=== PATIENT | female | born 1985 | race African-American/Black ===

== ENCOUNTER 2017-01-02 11:14 | Emergency (ER) | payer OTHER ==
[2017-01-02 12:04] VITALS: BP 118/81
--- NOTE | 2017-01-02 12:54 | UC ---
Eye Complaint HPI - HPI Summary HPI Summary: ONE WEEK OF CONGESTION COLD SYMPTOMS, LAST TWO DAYS HAS HAD LEFT EYE IRRITATION , BURNING AND DRAINAGE AND DISCHARGE. - History of Current Complaint Chief Complaint: UCEye Stated Complaint: EYE INFECTION Time Seen by Provider: 01/02/17 11:56 Hx Obtained From: Patient Hx Last Menstrual Period: depo shots - last period in february Onset/Duration: Gradual Onset, Lasting Weeks, Worse Since - LAST TWO DAYS Timing: Weeks Severity Initially: Mild Severity Currently: Moderate Location of Injury: Conjunctiva Character: Dull Aggravating Factor(s): Nothing Alleviating Factor(s): Nothing Associated Signs And Symptoms: Positive: Drainage (Clear), Drainage (Purulent). Negative: Photophobia, Vision Impairment Bilateral, Vision Impairment Right, Vision Impairment Left, Fever, Swelling - Risk Factors Globe Rupture Risk Factors: Negative Acute Glaucoma Risk Factors: Negative Optic Artery Occlusion Risk Factors: Negative - Allergies/Home Medications Allergies/Adverse Reactions: Allergies Allergy/AdvReac Type Severity Reaction Status Date / Time Shrimp Flavor Allergy Anaphylatic Verified 03/22/16 07:50 Shock PMH/Surg Hx/FS Hx/Imm Hx Previously Healthy: Yes Endocrine History Of: Denies: Diabetes, Thyroid Disease Cardiovascular History Of: Denies: Cardiac Disorders, Hypertension Respiratory History Of: Denies: COPD, Asthma GI/ History Of: Denies: Ulcer - Surgical History Surgical History: Yes Surgery Procedure, Year, and Place: tubal ligation - Family History Known Family History: Negative: Respiratory Disease - Social History Occupation: Employed Full-time Alcohol Use: Rare Substance Use Type: None Smoking Status (MU): Light Every Day Tobacco Smoker Type: Cigarettes Amount Used/How Often: 1pk/week Cessation Counseling: Patient Advised to Stop Review of Systems Constitutional: Negative Skin: Negative Eyes: Drainage, Eye Redness ENT: Ear Ache, Nasal Discharge Respiratory: Cough Cardiovascular: Negative Gastrointestinal: Negative Genitourinary: Negative Motor: Negative Neurovascular: Negative Musculoskeletal: Negative Neurological: Negative Psychological: Negative All Other Systems Reviewed And Are Negative: Yes Physical Exam Triage Information Reviewed: Yes Appearance: Well-Appearing, No Pain Distress, Well-Nourished Vital Signs: Initial Vital Signs Temp 97.8 F 01/02/17 11:56 Pulse 87 01/02/17 11:56 Resp 18 01/02/17 11:56 BP 118/81 01/02/17 11:56 Pulse Ox 100 01/02/17 11:56 Vital Signs Reviewed: Yes Eyes: Positive: Conjunctiva Inflamed, Discharge ENT: Positive: Hearing grossly normal, Pharynx normal, TM bulging, TM dull, Other: - CERUMEN IMPACTION BILATERAL L>R Dental Exam: Normal Neck exam: Normal Neck: Positive: Supple, Nontender, No Lymphadenopathy Respiratory Exam: Normal Respiratory: Positive: Chest non-tender, Lungs clear, Normal breath sounds, No respiratory distress, No accessory muscle use Cardiovascular Exam: Normal Cardiovascular: Positive: RRR, No Murmur, Pulses Normal Abdominal Exam: Normal Abdomen Description: Positive: Nontender, No Organomegaly Musculoskeletal Exam: Normal Neurological Exam: Normal Psychological Exam: Normal Psychological: Positive: Normal Response To Family Skin Exam: Normal Eye Complaint Course/Dx - Differential Dx/Diagnosis Differential Diagnosis/HQI/PQRI: Conjunctivitis Provider Diagnoses: LEFT CONJUNCTIVITIS. SINUSITIS Discharge - Discharge Plan Condition: Stable Disposition: HOME Prescriptions: Amoxicillin/Clavulanate TAB* [Augmentin TAB 875*] 875 mg PO BID #20 tab Neomycin/Polymy/Dex OPTH.SUSP* [Maxitrol Opth Susp 0.1%*] 1 drop LEFT EYE TID # 1 bottle Patient Education Materials: Sinusitis (ED), Cerumen Impaction (ED), Conjunctivitis (ED) Referrals: Steven Garcia MD [Primary Care Provider] -
== END 2017-01-02 13:04 | disposition home or self-care (01) ==
LOC: UCEAST 11:14
DX: H10.32 Unspecified acute conjunctivitis, left eye (principal); J32.9 Chronic sinusitis, unspecified; F17.210 Nicotine dependence, cigarettes, uncomplicated
CPT/HCPCS: 99212; G0463

== ENCOUNTER 2017-07-17 12:53 | Emergency (ER) | payer SELFPAY ==
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
[2017-07-17] MEDS ORDERED: Ibuprofen TAB* 600 MG PO ONE (13:48)
--- NOTE | 2017-07-17 14:45 | RAD ---
Indication: RIGHT shoulder pain post fall. Comparison: No relevant prior exams available on the [facility] for comparison. Technique: Internal rotation AP, external rotation Grashey, scapular Y, axillary views RIGHT shoulder Report: Normal acromioclavicular and glenohumeral joint alignment. Transverse gap at the acromioclavicular joint is upper normal. Negative for fracture. No significant arthropathic change evident. Unremarkable soft tissue contours. IMPRESSION: Negative for fracture or dislocation.
[2017-07-17 14:54] VITALS: BP 119/73
== END 2017-07-17 14:55 | disposition home or self-care (01) ==
LOC: UCEAST 12:53
DX: S40.011A Contusion of right shoulder, initial encounter (principal); S40.211A Abrasion of right shoulder, initial encounter; S00.81XA Abrasion of other part of head, initial encounter; S20.319A Abrasion of unspecified front wall of thorax, initial encounter; S01.511A Laceration without foreign body of lip, initial encounter; Y04.8XXA Assault by other bodily force, initial encounter; Y93.9 Activity, unspecified; Y92.9 Unspecified place or not applicable; F17.210 Nicotine dependence, cigarettes, uncomplicated
CPT/HCPCS: 99213; A9270-GY; G0463

== ENCOUNTER 2017-10-08 15:04 | Emergency (ER) | payer SELFPAY ==
[2017-10-08 15:33] VITALS: BP 112/63
--- NOTE | 2017-10-08 15:44 | UC ---
Lower Extremity/Ankle HPI - HPI Summary HPI Summary: Pt presents with left foot pain. 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 At some point during this process, the patient moved and the wheelchair hit her left foot and pinched it. She was able to walk on it and carried on with the rest of her shift, but today had increased pain and swelling at the base of her 2nd and 3rd digits. Has been icing the foot. Nothing OTC for pain. Denies previous injury, numbness, or tingling. - History of Current Complaint Chief Complaint: UCLowerExtremity Stated Complaint: SWOLLEN TOE Time Seen by Provider: 10/08/17 15:35 Hx Obtained From: Patient Hx Last Menstrual Period: 09/09/17 ?: No Onset/Duration: Sudden Onset Severity Initially: Mild Severity Currently: Moderate Pain Intensity: 7 Pain Scale Used: 0-10 Numeric Aggravating Factor(s): Standing, Ambulation Alleviating Factor(s): Rest, Elevation Able to Bear Weight: Yes - Allergies/Home Medications Allergies/Adverse Reactions: Allergies Allergy/AdvReac Type Severity Reaction Status Date / Time Shrimp Flavor Allergy Anaphylatic Verified 10/08/17 15:33 Shock PMH/Surg Hx/FS Hx/Imm Hx Previously Healthy: Yes - Surgical History Surgical History: Yes Surgery Procedure, Year, and Place: tubal ligation - Family History Known Family History: Positive: None Negative: Respiratory Disease - Social History Occupation: Employed Full-time Lives: With Family Alcohol Use: Rare Substance Use Type: None Smoking Status (MU): Light Every Day Tobacco Smoker Type: Cigarettes Amount Used/How Often: 1pk/week Have You Smoked in the Last Year: Yes Household Exposure Type: Cigarettes Cessation Counseling: Counseled 3+Min - 10 Min Review of Systems Constitutional: Negative Skin: Negative Respiratory: Negative Cardiovascular: Negative Neurovascular: Negative Musculoskeletal: Other: - Pain left forefoot. Neurological: Negative Psychological: Negative All Other Systems Reviewed And Are Negative: Yes Physical Exam Triage Information Reviewed: Yes Appearance: Well-Appearing, Well-Nourished Vital Signs: Initial Vital Signs Temp 98 F 10/08/17 15:28 Pulse 91 10/08/17 15:28 Resp 17 10/08/17 15:28 BP 112/63 10/08/17 15:28 Pulse Ox 100 11/26/17 15:28 Vital Signs Reviewed: Yes Musculoskeletal: Positive: Strength Intact, ROM Intact, No Edema, Other: - Left foot: TTP at the base of the 2nd and 3rd digits. No obvious bony deformities. Mild pain with toe extension over the base of 2nd and 3rd. Neurological: Positive: Alert, Other: - Sensations intact b/l feet and all digits. Psychological: Positive: Age Appropriate Behavior Skin: Negative: rashes Lower Extremity Course/Dx - Course Course Of Treatment: Prior to imaging study, a test was offered and potential risks to a fetus were discussed - pt declined test. XR: IMPRESSION: NO EVIDENCE FOR FRACTURE. Crutches. WBOT. CORRINA wrap. Ibuprofen for pain. No work today. - Differential Dx/Diagnosis Differential Diagnosis/HQI/PQRI: Contusion, Dislocation, Fracture (Closed), Sprain, Strain Provider Diagnoses: Foot contusion Discharge - Discharge Plan Condition: Stable Disposition: HOME Patient Education Materials: Foot Contusion (ED) Referrals: Steven Garcia MD [Primary Care Provider] - Brett Tran MD [Medical Doctor] - If Needed Additional Instructions: 1) Rest, Elevate, Wrap, and Ice your foot. 2) No work for today. Weight bear and walk as tolerated. 3) Ibuprofen OTC for pain If you develop a fever, SOB, chest pain, new or worsening symptoms - please call your PCP or go to the ED.
--- NOTE | 2017-10-08 16:07 | RAD ---
INDICATION: Left foot injury. TECHNIQUE: 3 views of the left foot were obtained. FINDINGS: The bones are in normal alignment. No fracture is seen. Joint spaces appear maintained. IMPRESSION: NO EVIDENCE FOR FRACTURE, IF THE PATIENT'S SYMPTOMS PERSIST RECOMMEND FOLLOW-UP IMAGING.
== END 2017-10-08 16:36 | disposition home or self-care (01) ==
LOC: UCEAST 15:04
DX: Z72.0 Tobacco use (principal); S90.32XA Contusion of left foot, initial encounter; V00.818A Other accident with wheelchair (powered), initial encounter; Y93.89 Activity, other specified; Y92.9 Unspecified place or not applicable; Y99.0 Civilian activity done for income or pay
CPT/HCPCS: 99213; G0463

== ENCOUNTER 2020-02-27 07:05 | Day surgery (SDC) | payer OTHER ==
[~2020-02-27 07:05] MED LIST: Buffered Lidocaine 1% SYRIN* 1 ML/SYRINGE INTRADERM ONE; Lactated Ringers 1000 ML Bag* 1,000 ML IV SCH
[2020-02-27] MEDS ORDERED: ceFAZolin 1 GM ADVAN(*) 1 GM ADDV.VIAL IVPB ONE (07:30)
[2020-02-27] MEDS ORDERED: ceFAZolin 2 GM PREMIX in ORs 2 GM/50 ML BAG ONE (07:30)
[2020-02-27] MEDS ORDERED: Propofol* 10 MG/ML 20 ML BTL ONE (08:06)
[2020-02-27] MEDS ORDERED: Lidocaine 2% PF * 5 ML VIAL ONE (08:07)
[2020-02-27] MEDS ORDERED: Dexmedetomidine* 200 MCG/2 ML 2 ML VIAL ONE (08:07)
[2020-02-27] MEDS ORDERED: Bupivacaine 0.25% SDV PF* 10 ML VIAL INJ ONE (08:07)
[2020-02-27] MEDS ORDERED: Midazolam* 1 MG/ML 2 ML VIAL (2 MG) ONE (08:08)
[2020-02-27] MEDS ORDERED: Buffered Lidocaine 1% SYRIN* 1 ML/SYRINGE INTRADERM ONE (08:22)
[2020-02-27] MEDS ORDERED: Bupivacaine 0.5%* 50 ML MDV VIAL ONE (09:17)
[2020-02-27] MEDS ORDERED: Ketorolac INJ* 30 MG/ML 1 ML VIAL ONE (10:40)
[2020-02-27] MEDS ORDERED: Ondansetron INJ* 2 MG/ML VIAL ONE (10:40)
[2020-02-27] MEDS ORDERED: Acetaminophen IV 1GM/100ML * 100 ML ONE (10:40)
--- NOTE | 2020-02-27 11:56 | OP ---
Operative Report - Blank - Operative Report Date of Operation: 02/27/20 Note: PATIENT: Olga Trimble DATE OF : 1985 DATE OF SURGERY: 02/27/2020 SURGEON: Brett Tran MD MILLER KILN DRIED SALT: PANKAJ Bynum, whos assistance was necessary for positioning, retraction, help with instrumentation, and closure. ANESTHESIOLOGIST: Dr. Serra PREOPERATIVE DIAGNOSIS: Left displaced lateral talar dome osteochondral fracture and ankle sprain POSTOPERATIVE DIAGNOSIS: Left displaced lateral talar dome osteochondral fracture and ankle sprain OPERATION: 1. Left open reduction and internal fixation of displaced lateral talar dome osteochondral fracture. 2. Left ankle modified Brostrom procedure lateral ligament reconstruction. ANESTHESIA: Spinal + block IMPLANTS: Arthrex chondral darts x3 TOURNIQUET TIME: Less than 2 hours with a well-padded thigh tourniquet at 275 mmHg SPECIMENS: none ESTIMATED BLOOD LOSS: minimal COMPLICATIONS: none STATUS: Stable from the operating room to the recovery room and then home. INDICATIONS FOR PROCEDURE: Olga, sustained a left ankle inversion injury and a displaced fracture of her lateral talar dome. Both operative and non operative treatment alternatives were reviewed. Further, the nature and risks of surgery were reviewed in careful detail, in the office as well as the pre-operative holding area. Our discussions regarding the risks of surgery included, but were not limited to, infection, wound problems, nerve injury, neuroma, RSD, persistent symptoms, nonunion, malunion, arthritis, recurrent instability, blood clot, failure of the surgery, and even the remote chance of catastrophic complication. DESCRIPTION OF PROCEDURE: The patient was seen in the preoperative holding unit and informed written consent was obtained. The appropriate extremity was marked. The patient was then brought to the operating room and carefully positioned on the operating room table. Anesthesia was induced. All bony prominences were padded with great care. A chlorhexidine based pre-scrub was performed followed by a chloraprep prep and drape in standard sterile fashion. A surgical safety pause was then conducted in which we confirmed the appropriate patient, extremity, planned procedure, availability of equipment, indication and administration of prophylactic antibiotics, and DVT prophylaxis in the form of a compression boot on the non-surgical extremity. I began with an Esmarch exsanguination of limb and inflated the tourniquet. I made a longitudinal incision overlying the distal fibula. I dissected down to the layer of the periosteum. I then dissected anteriorly to expose the anterolateral ankle ligaments. We protected the superficial peroneal nerve at all times, which was not visualized within our field. Once we had adequately exposed a pocket anterior to the ligaments, we sharply took the ligaments down off of the anterior and distal aspect of the fibula using a 15 blade. The inferior extensor retinaculum was exposed and protected for subsequent repair later in the procedure. I then entered the lateral ankle joint. The osteochondral fracture was immediately identified and had flipped 180 degrees, as expected. I removed the osteochondral fracture to expose the fracture bed. There is little bit of fibrinous material which was removed with a curette. A little bit of overhanging cartilage was excised. I then reduced the fracture fragment back to the fracture bed. A small K wire was placed to hold this provisionally. I then used 3 Arthrex chondral darts to secure the fractured fragment back to the rest of the talus. The provisional K wire was removed and the fracture remained well reduced and securely fixated. I then used fluoroscopy to confirm the reduction. I then utilized a rongeur to make a trough along the fibula to receive the reconstructed ligaments. I then utilized K-wires to drill holes in the fibula for a transosseous suture repair of the lateral ligaments utilizing a horizontal mattress suture. Multiple #1 Vicryl sutures were passed through the fibula and then through the ligaments and then back through the fibula. These sutures were all passed with great care taken to appropriately tension both the ATFL as well as the CFL in order to get a nice tight repair. We held the ankle in a dorsiflexed and everted position while the ligaments and sutures were tied down over the fibular bone bridges. These held the ankle in a much improved position with excellent tension on the ligaments. We then utilized a rotational flap from the periosteum overlying the distal fibula to augment the repair. This was sewn down using a horizontal mattress stich overlying the ATFL. We further augmented the repair by bringing the inferior extensor retinaculum up to the fibula. The wound was copiously irrigated. We then irrigated the wound copiously again. The wound was closed in a layered fashion utilizing 3-0 Monocryl and 3-0 nylon. A sterile dressing was then applied and the ankle was splinted in a neutral position. All needle and sponge counts were correct at the end of the case. The patient was awakened from anesthesia and transferred to the recovery room in stable condition. There were no complications. ATTESTATION: I attest I was present and scrubbed and performed the critical portions of the procedure myself. POST-OPERATIVE PLAN: The patient will remain [id number] for an anticipated duration of 6 weeks. Follow up will be in 2 weeks for likely suture removal and transition into a short leg cast.
[2020-02-27 14:00] VITALS: BP 119/69
== END 2020-02-27 14:00 | disposition home or self-care (01) ==
LOC: OR 07:05
PROVIDERS: ATTEND Orthopaedic Surgery
DX: S92.142A Displaced dome fracture of left talus, initial encounter for closed fracture (principal); S93.492A Sprain of other ligament of left ankle, initial encounter; F17.210 Nicotine dependence, cigarettes, uncomplicated; X58.XXXA Exposure to other specified factors, initial encounter; Y92.9 Unspecified place or not applicable; G89.18 Other acute postprocedural pain; E66.01 Morbid (severe) obesity due to excess calories
CPT/HCPCS: 76000; C1713; C1776; J0690; J1885; J2250; J2405; J2704; J3490